=== PATIENT | male | born 1965 | race Caucasian/White ===

== ENCOUNTER 2017-09-13 06:13 | Day surgery (SDC) | END 2017-09-13 11:23 | disposition home or self-care (01) ==

== ENCOUNTER 2018-08-31 09:37 | Emergency (ER) | payer OTHER ==
[~2018-08-31] VITALS: Wt 90.0 kg
[~2018-08-31 09:37] MED LIST: ACET325T33 PO; ASPI-817 PO; ATOR20TA38 PO; HYDR-3609 PO; LEVO500T10 PO; POLY17PO6 PO
[2018-08-31 09:44] VITALS: BP 140/78; PULSE 85; RESP 18
[2018-08-31] MEDS ORDERED: ACET500C5 PO (10:06)
[2018-08-31] MEDS ORDERED: IBUP800T48 PO (10:06)
--- NOTE | 2018-08-31 10:59 | ERD ---
ER Documentation Chief Complaint Chief Complaint CLAIMMED FEVER LAST NIGHT , WAANTS TO HAVE CHECK UP, NO OTHER SYMTOM HPI 53-year-old male presenting with history of fevers last night. Patient states he woke up this morning feeling totally fine however he had a documented 104.3 temperature at home yesterday he wanted to be evaluated. He denies any cough or runny nose. Denies abdominal pain 2. Denies vomiting. Had mild headache. Denies any runny nose or ear pain. No sick contacts. Medical history is cholecystectomy. Social history denies. Denies allergies to medications ROS All systems reviewed and are negative except as per history of present illness. Medications Home Meds Active Scripts Acetaminophen* (Tylophen*) 500 Mg Capsule, 2 CAP PO Q8H PRN for PAIN AND OR ELEVATED TEMP, #20 CAP Prov:STEFANIE YE PA-C 08/31/18 Ibuprofen* (Motrin*) 800 Mg Tab, 800 MG PO Q6, #30 TAB Prov:STEFANIE YE PA-C 08/31/18 Levofloxacin* (Levofloxacin*) 500 Mg Tablet, 500 MG PO DAILY for 4 Days, #4 TAB Prov:ANGUS COPELAND MD 07/19/18 Polyethylene Glycol* (Miralax*) 17 Gm Powd.pack, 17 GM PO BID for 5 Days otc Prov:ANGUS COPELAND MD 07/19/18 Hydrocodone/Acetaminophen (Hydrocodone-Acetamin 10-325 mg) 1 Each Tablet, 1 TAB PO Q4H PRN for MODERATE PAIN LEVEL 4-6 for 5 Days, #20 TAB Prov:ANGUS COPELAND MD 07/19/18 Acetaminophen* (Tylenol*) 325 Mg Tablet, 650 MG PO Q6H PRN for .PAIN 1-3 OR TEMP for 1 Day, TAB Prov:ANGUS COPELAND MD 07/19/18 Reported Medications Atorvastatin Calcium* (Atorvastatin Calcium*) 20 Mg Tablet, 20 MG PO QHS, #30 TAB 07/14/18 Aspirin* (Aspirin* EC) 81 Mg Tablet.dr, 81 MG PO DAILY, TAB 09/13/17 Allergies Allergies: Coded Allergies: No Known Drug Allergies (Verified Allergy, Unknown, 08/31/18) PMhx/Soc History of Surgery: No Anesthesia Reaction: No Hx Neurological Disorder: No Hx Respiratory Disorders: No Hx Cardiac Disorders: Yes (High Cholesterol) Hx Psychiatric Problems: No Hx Miscellaneous Medical Probl: Yes (borderline DM) Hx Alcohol Use: Yes (occassional) Hx Substance Use: No Hx Tobacco Use: Yes (sometimes) Smoking Status: Current every day smoker FmHx Family History: No diabetes, No coronary disease, No other Physical Exam Vitals Vital Signs Date Temp Pulse Resp B/P (MAP) Pulse Ox O2 O2 Flow FiO2 Time Delivery Rate 08/31/18 98.1 85 18 140/78 99 09:44 (98) Physical Exam GENERAL: The patient is well-appearing, well-nourished, in no acute distress HEENT: Atraumatic. Conjunctivae are pink. Pupils equal, round, and reactive to light. There is no scleral icterus. Tympanic membranes clear bilaterally. Oropharynx clear. NECK: C-spine is soft and supple. There is no meningismus. There is no cervical lymphadenopathy. CHEST: Clear to auscultation bilaterally. There are no rales, wheezes or rhonchi. HEART: Regular rate and rhythm. No murmurs, clicks, rubs or gallops. ABDOMEN:Soft, nontender and nondistended. Good bowel sounds. No rebound or guarding. No gross peritonitis. No gross organomegaly or masses. Procedures/MDM MDM: 53-year-old male presenting with febrile illness. Patient is well- appearing with normal vitals on exam today. He has not taken medication today. I have low suspicion for meningitis or sepsis. I have low suspicion for pneumonia. I have low suspicion for bacterial HEENT infection. Patient is told if symptoms change or worsen to return immediately to the ER. All questions answered at discharge Departure Diagnosis: Primary Impression: Viral syndrome Condition: Stable Patient Instructions: Viral Syndrome (Adult) Additional Instructions: FOLLOW UP WITH YOUR PRIMARY CARE PHYSICIAN TOMORROW.Return to this facility if you are not improving as expected. STEFANIE YE PA-C Aug 31, 2018 10:59
== END 2018-08-31 10:34 | disposition home or self-care (01) ==
LOC: FTE 09:37
DX: B34.9 Viral infection, unspecified (principal); F17.210 Nicotine dependence, cigarettes, uncomplicated; Z79.82 Long term (current) use of aspirin
CPT/HCPCS: 99282